=== PATIENT | female | born 1965 | race Caucasian/White ===

== ENCOUNTER 2021-10-03 09:19 | Emergency (ER) | payer BC ==
[~2021-10-03] VITALS: Ht 177.8 cm; Wt 63.6 kg
[2021-10-03] MEDS ORDERED: normal saline 1000ml 1,000 ML IV ONE (09:40)
[2021-10-03] MEDS ORDERED: proCHLORperazine 10 MG/2 ml inj IV ONE (09:40)
[2021-10-03] MEDS ORDERED: ketorolac trometh. 30mg/ml inj. IV ONE (09:40)
[2021-10-03] MEDS ORDERED: diphenhydrAMINE 50 mg/ml inj IV ONE (09:40)
[2021-10-03 10:11] LABS: BASOPHILS % (AUTO) 0.5 % (0-1); EOSINOPHILS # (AUTO) 0.1 X10'3 (0-0.9); EOSINOPHILS % (AUTO) 1.8 % (0-6); HEMATOCRIT 39.4 % (35.0-45.0); HEMOGLOBIN 13.3 g/dl (12.0-16.0); LYMPHOCYTES % (AUTO) 22.9 % (21-51); MEAN CORPUSCULAR HEMOGLOBIN 29.4 PG (27.0-31.0); MEAN CORPUSCULAR HGB CONC 33.9 g/dL (33.0-36.5); MEAN CORPUSCULAR VOLUME 86.9 FL (78-98); MEAN PLATELET VOLUME 8.1 FL (7.4-10.4); MONOCYTES # (AUTO) 0.4 X10'3 (0-0.9); MONOCYTES % (AUTO) 9.7 % (2-12); NEUTROPHILS % (AUTO) 65.1 % (42-75); PLATELET COUNT 293 X10'3 (140-440); RED BLOOD COUNT 4.54 X10'6 (4.20-5.60); RED CELL DISTRIBUTION WIDTH 14.4 % (11.5-14.5); WHITE BLOOD COUNT 4.6 X10'3 (4.5-11.0)
[2021-10-03 10:15] LABS: ALBUMIN 4.2 G/DL (3.4-5.0); BLOOD UREA NITROGEN 19 MG/DL (7-18); BUN/CREATININE RATIO 25.3 (6.6-38.0); CALCIUM 8.5 MG/DL (8.5-10.1); CHLORIDE 104 MMOL/L (99-107); CREATININE 0.75 MG/DL (0.40-0.90); GLUCOSE 77 MG/DL (70-104); POTASSIUM 3.9 MMOL/L (3.5-5.1); TOTAL CARBON DIOXIDE 28.9 MMOL/L (24-32); eGFR 80 ML/MIN
[2021-10-03 10:18] LABS: ANION GAP 9 (8-16); SODIUM 142 MMOL/L (135-145)
[2021-10-03 11:31] VITALS: BP 114/80
== END 2021-10-03 11:33 | disposition home or self-care (01) ==
LOC: ER 09:20
DX: R51.9 Headache, unspecified (principal)
CPT/HCPCS: 36415; 70450; 73110; 80048; 84484; 85025; 85651; 93005; 96361; 96374; 96375; 99285; J0780; J1200; J1885; J7030